=== PATIENT | female | born 1960 | race Caucasian/White ===

== ENCOUNTER 2016-12-25 19:04 | Emergency (ER) | payer MEDICAID, OTHER ==
[~2016-12-25] VITALS: Ht 170.2 cm; Wt 77.9 kg
[2016-12-25] MEDS ORDERED: SODIUM CHLORIDE FLUSH 10ML SYR IVF ONE ×2 (19:30→21:00)
[2016-12-25 20:05] LABS: HEMATOCRIT 38.1 % (34.6-47.8); HEMOGLOBIN 12.9 g/dL (11.7-16.4); WHITE BLOOD COUNT 5.6 x10^3/uL (3.4-10)
[2016-12-25 20:15] LABS: BLOOD UREA NITROGEN 16 mg/dL (7-18)
[2016-12-25] MEDS ORDERED: GABA300C10 PO (20:20)
[2016-12-25] MEDS ORDERED: ERGO500018 PO (20:20)
[2016-12-25] MEDS ORDERED: SUMA20SP2 NAS (20:20)
[2016-12-25] MEDS ORDERED: AMIT25TA PO (20:20)
[2016-12-25] MEDS ORDERED: LOSA100T6 PO (20:20)
[2016-12-25] MEDS ORDERED: PROM25SU34 RC (20:20)
[2016-12-25] MEDS ORDERED: DULO30CA2 PO (20:20)
[2016-12-25] MEDS ORDERED: VERA120T5 PO (20:20)
[2016-12-25] MEDS ORDERED: OMEP-110 PO (20:20)
[2016-12-25] MEDS ORDERED: RIZA10TA20 PO (20:20)
[2016-12-25] MEDS ORDERED: PROCHLORPERAZINE 5 MG/ML, 2ML IVPush ONE (21:00)
[2016-12-25] MEDS ORDERED: SODIUM CHLORIDE 0.9% 1,000ML IVBOLUS ONE (21:00)
[2016-12-25] MEDS ORDERED: KETOROLAC 30 MG/1 ML IVPush ONE (21:00)
[2016-12-25] MEDS ORDERED: DIPHENHYDRAMINE 50 MG/ML, 1ML IVPush ONE (21:00)
[2016-12-25] MEDS ORDERED: KETOROLAC 30 MG/1 ML ONE (21:03)
[2016-12-25] MEDS ORDERED: PROCHLORPERAZINE 5 MG/ML, 2ML ONE (21:03)
[2016-12-25] MEDS ORDERED: DIPHENHYDRAMINE 50 MG/ML, 1ML ONE (21:03)
[2016-12-25 22:10] VITALS: BP 126/65
== END 2016-12-25 22:23 | disposition home or self-care (01) ==
LOC: ED 22:17
DX: G43.009 Migraine without aura, not intractable, without status migrainosus (principal); I10 Essential (primary) hypertension; Z87.891 Personal history of nicotine dependence; Z88.5 Allergy status to narcotic agent; Z91.041 Radiographic dye allergy status
CPT/HCPCS: 36415; 70450; 80048; 82040; 85025; 96361; 96374; 96375; 99285; J0780; J1200; J1885; J7030

== ENCOUNTER 2017-01-09 13:19 | Emergency (ER) | payer MEDICAID ==
[~2017-01-09] VITALS: Ht 170.2 cm; Wt 77.9 kg
[~2017-01-09 13:19] MED LIST: AMIT25TA PO; DULO30CA2 PO; ERGO500018 PO; GABA300C10 PO; LOSA100T6 PO; OMEP-110 PO; PROM25SU34 RC; RIZA10TA20 PO; SUMA20SP2 NAS; VERA120T5 PO
[2017-01-09 13:30] VITALS: BP 175/104
[2017-01-09] MEDS ORDERED: HYDROcodone/APAP 5/325 TABLET PO STA (13:51)
[2017-01-09] MEDS ORDERED: HYDROcodone/APAP 5/325 TABLET ONE (13:55)
== END 2017-01-09 15:13 | disposition home or self-care (01) ==
LOC: ED 15:07
DX: S62.174A Nondisplaced fracture of trapezium [larger multangular], right wrist, initial encounter for closed fracture (principal); S80.01XA Contusion of right knee, initial encounter; S40.812A Abrasion of left upper arm, initial encounter; S29.9XXA Unspecified injury of thorax, initial encounter; W19.XXXA Unspecified fall, initial encounter; Y93.89 Activity, other specified; Y99.8 Other external cause status; Y92.096 Garden or yard of other non-institutional residence as the place of occurrence of the external cause
CPT/HCPCS: 96374

== ENCOUNTER 2017-10-06 17:43 | Emergency (ER) | payer MEDICAID ==
[~2017-10-06] VITALS: Ht 170.2 cm; Wt 76.4 kg
[~2017-10-06 17:43] MED LIST changes: +PROM25SU34 PO; -PROM25SU34 RC; -SUMA20SP2 NAS; +SUMA20SP2 PO
[2017-10-06] MEDS ORDERED: ONDANSETRON ODT 4 MG PO ONE (18:00)
[2017-10-06] MEDS ORDERED: METOCLOPRAMIDE 5 MG/ML, 2ML IVPush ONE (19:30)
[2017-10-06] MEDS ORDERED: DIPHENHYDRAMINE 50 MG/ML, 1ML IVPush ONE (19:30)
[2017-10-06] MEDS ORDERED: SODIUM CHLORIDE FLUSH 10ML SYR IVF ONE (19:30)
[2017-10-06] MEDS ORDERED: SODIUM CHLORIDE 0.9% 1,000ML IVBOLUS ONE (19:30)
[2017-10-06 19:49] LABS: BASOPHILS # (AUTO) 0.03 x10^3/uL (0-0.1); BASOPHILS % (AUTO) 1 % (0-1); EOSINOPHILS # (AUTO) 0.14 x10^3/uL (0-0.4); EOSINOPHILS % (AUTO) 3 % (1-7); LYMPHOCYTES # (AUTO) 2.31 x10^3/uL (1-3.4); LYMPHOCYTES % (AUTO) 41 % (22-44); MD NO; MEAN CORPUSCULAR HEMOGLOBIN 29.9 pg (27.0-34.8); MEAN CORPUSCULAR VOLUME 90.8 fL (80-100); MEAN PLATELET VOLUME 7.6 fL (7.4-10.4); MONOCYTES # (AUTO) 0.32 x10^3/uL (0.2-0.8); MONOCYTES % (AUTO) 6 % (2-9); NEUTROPHILS # (AUTO) 2.79 x10^3/uL (1.8-6.8); NEUTROPHILS % (AUTO) 50 % (42-75); PLATELET COUNT 279 x10^3/uL (130-400); RED CELL DISTRIBUTION WIDTH 14.3 % (9.6-15.2)
[2017-10-06] MEDS ORDERED: METOCLOPRAMIDE 5 MG/ML, 2ML ONE (19:49)
[2017-10-06] MEDS ORDERED: DIPHENHYDRAMINE 50 MG/ML, 1ML ONE (19:49)
[2017-10-06 20:00] LABS: ALBUMIN 4.1 g/dL (3.4-5.0); ANION GAP 4 mmol/L (5-15); CALCIUM 9.3 mg/dL (8.5-10.1); CHLORIDE 109 mmol/L (98-107); CREATININE 2.72 mg/dL (0.55-1.02)
[2017-10-06] MEDS ORDERED: FURO-93 PO (20:10)
[2017-10-06 21:28] VITALS: BP 129/69
== END 2017-10-06 21:32 | disposition home or self-care (01) ==
LOC: ED 21:00
DX: G43.909 Migraine, unspecified, not intractable, without status migrainosus (principal); I10 Essential (primary) hypertension
CPT/HCPCS: 36415; 70450; 80048; 82040; 85025; 96374; 96375; 99285; J1200; J2765; J7030; Q0162

== ENCOUNTER → 2017-12-09 | Outpatient (CLI) | payer MEDICAID ==
[~2017-12-09] MED LIST changes: +FURO-93 PO
== END | disposition home or self-care (01) ==
LOC: CFH 15:18
PROVIDERS: ATTEND Nurse Practitioner Family
DX: S83.281A Other tear of lateral meniscus, current injury, right knee, initial encounter (principal); M22.41 Chondromalacia patellae, right knee; M75.51 Bursitis of right shoulder; Y93.89 Activity, other specified; X58.XXXA Exposure to other specified factors, initial encounter; Y92.89 Other specified places as the place of occurrence of the external cause; Y99.8 Other external cause status

== ENCOUNTER 2018-04-09 12:27 | Emergency (ER) | payer MEDICAID ==
[~2018-04-09] VITALS: Ht 170.2 cm; Wt 70.0 kg
[~2018-04-09 12:27] MED LIST changes: -LOSA100T6 PO; +LOSA100T7 PO
[2018-04-09] MEDS ORDERED: FLUORESCEIN/BENOXINATE 5 ML DROPS OP ONE (13:00)
--- NOTE | 2018-04-09 13:03 | NUR ---
pt presents with subconjunctival hemotoma in right eye after dog hit her in face x2 over last week. pain in nose and around orbit. no other bruising noted. visual acuity measured. bp stable. awaiting orders at this time.
--- NOTE | 2018-04-09 13:35 | NUR ---
pt to imaging.
[2018-04-09 13:58] VITALS: BP 160/75
--- NOTE | 2018-04-09 14:02 | NUR ---
ct results back. chart up for recheck.
== END 2018-04-09 14:39 | disposition home or self-care (01) ==
LOC: ED 14:00
DX: H11.31 Conjunctival hemorrhage, right eye (principal); J32.0 Chronic maxillary sinusitis; G89.29 Other chronic pain; I10 Essential (primary) hypertension; Z90.89 Acquired absence of other organs
CPT/HCPCS: 70486; 99284

== ENCOUNTER 2019-03-23 13:57 | Inpatient (IN) | payer MEDICAID ==
[~2019-03-23] VITALS: Ht 170.2 cm; Wt 64.8 kg
[~2019-03-23 13:57] MED LIST changes: +LOSA100T14 PO; -LOSA100T7 PO
[2019-03-23 15:19] LABS: BASOPHILS # (AUTO) 0.03 x10^3/uL (0-0.1); BASOPHILS % (AUTO) 0 % (0-1); EOSINOPHILS # (AUTO) 0.17 x10^3/uL (0-0.4); EOSINOPHILS % (AUTO) 3 % (1-7); LYMPHOCYTES # (AUTO) 1.61 x10^3/uL (1-3.4); LYMPHOCYTES % (AUTO) 26 % (22-44); MD NO; MEAN CORPUSCULAR HEMOGLOBIN 30.8 pg (27.0-34.8); MEAN CORPUSCULAR HGB CONC 32.2 g/dL (32.4-35.8); MEAN CORPUSCULAR VOLUME 95.8 fL (80-100); MEAN PLATELET VOLUME 7.3 fL (7.4-10.4); MONOCYTES # (AUTO) 0.31 x10^3/uL (0.2-0.8); MONOCYTES % (AUTO) 5 % (2-9); NEUTROPHILS # (AUTO) 4.01 x10^3/uL (1.8-6.8); NEUTROPHILS % (AUTO) 65 % (42-75); PLATELET COUNT 268 x10^3/uL (130-400); RED BLOOD COUNT 3.98 x10^6/uL (3.82-5.3); RED CELL DISTRIBUTION WIDTH 13.3 % (9.6-15.2)
[2019-03-23 15:30] LABS: ALANINE AMINOTRANSFERASE 19 U/L (12-78); ALBUMIN 3.7 g/dL (3.4-5.0); ANION GAP 5 mmol/L (5-15); CALCIUM 9.3 mg/dL (8.5-10.1); CHLORIDE 112 mmol/L (98-107)
[2019-03-23 15:32] LABS: ALKALINE PHOSPHATASE 156 U/L (45-117); BILIRUBIN,TOTAL 0.3 mg/dL (0.2-1.0); TOTAL PROTEIN 7.1 g/dL (6.4-8.2)
--- NOTE | 2019-03-23 17:14 | NUR ---
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
--- NOTE | 2019-03-23 18:20 | NUR ---
IV ESTABLISHED AND PT MEDICATED PER MAR. NO NEEDS AT THIS TIME. CALL LIGHT WTIHIN REACH.
[2019-03-23] MEDS ORDERED: METOCLOPRAMIDE 5 MG/ML, 2ML ONE (18:26)
[2019-03-23] MEDS ORDERED: DIPHENHYDRAMINE 50 MG/ML, 1ML ONE (18:26)
[2019-03-23] MEDS ORDERED: SODIUM CHLORIDE 0.9% 1,000ML IVBOLUS ONE (18:30)
[2019-03-23] MEDS ORDERED: METOCLOPRAMIDE 5 MG/ML, 2ML IVPush ONE (18:30)
[2019-03-23] MEDS ORDERED: DIPHENHYDRAMINE 50 MG/ML, 1ML IVPush ONE (18:30)
--- NOTE | 2019-03-23 19:11 | NUR ---
Patient out of room for imaging.
--- NOTE | 2019-03-23 20:46 | NUR ---
RN to bedside, patient's family member at bedside. Informed patient that her MRI still needs to finish being read by a radiologist. Per patient and family member, vital signs (hypertension) has improved and headache has improved after migrain medications were administered. Lights turned off, declines further needs at this time.
[2019-03-23] MEDS ORDERED: MORPHINE SULFATE 4 MG/ML, 1ML IVPush PRN (21:00)
[2019-03-23] MEDS ORDERED: MORPHINE SULFATE 4 MG/ML, 1ML ONE (21:08)
[2019-03-23] MEDS: MORPHINE SULFATE 4 MG/ML, 1ML IVPush PRN (21:12)
--- NOTE | 2019-03-23 22:16 | NUR ---
###==== Contact info ====### Bert Dwyer:
--- NOTE | 2019-03-23 23:17 | NUR ---
Patient sleeping comfortably, vital signs stable. Awaiting medical floor placement.
[2019-03-24] VITALS (9 sets, daily range): BP systolic 119–177; BP diastolic 71–81
[2019-03-24] MEDS ORDERED: morphine SULFATE 10 MG/ML, 1ML IVPush PRN (00:30)
[2019-03-24] MEDS ORDERED: ACETAMINOPHEN 325 MG TABLET PO PRN (00:30)
[2019-03-24] MEDS ORDERED: TEMAZEPAM 15 MG CAPSULE PO PRN (00:30)
[2019-03-24] MEDS ORDERED: BISACODYL 10 MG SUPP PR PRN (00:30)
[2019-03-24] MEDS ORDERED: ENALAPRILAT 1.25 MG/ML, 2ML IVPush PRN (00:30)
[2019-03-24] MEDS ORDERED: LORazepam 2 MG/ML, 1ML IVPush PRN (00:30)
[2019-03-24] MEDS ORDERED: LIDODERM 5% PATCH TD PRN (00:30)
[2019-03-24] MEDS: ONDANSETRON 2MG/ML, 2ML IVPush PRN ×2 (00:54→18:15)
[2019-03-24] MEDS ORDERED: hydrALAzine 20 MG/ML, 1ML IV PRN ×2 (01:00→09:00)
[2019-03-24] MEDS ORDERED: PHARMACY MAY ADJ FOR RENAL FX MC PRN (01:00)
[2019-03-24] MEDS ORDERED: DIPHENHYDRAMINE 50 MG/ML, 1ML IVPush PRN (01:00)
[2019-03-24] MEDS: MORPHINE SULFATE 4 MG/ML, 1ML IVPush PRN (08:20)
[2019-03-24] MEDS ORDERED: RIZATRIPTAN 10MG TABLET PO PRN (08:30)
[2019-03-24] MEDS: DULOXETINE 30 MG CAPSULE.DR PO SCH ×2 (09:00→09:32)
[2019-03-24] MEDS: GABAPENTIN 100 MG CAPSULE PO SCH ×2 (09:00→09:32)
[2019-03-24] MEDS: VERAPAMIL 120MG TABLET PO SCH (09:33)
[2019-03-24] MEDS ORDERED: SODIUM CHLORIDE 0.45% 1,000 ML IV SCH (11:00)
[2019-03-24] MEDS: VALPROATE SODIUM 500 MG in DEXTROSE 5% 100 ML IV SCH ×3 (12:02→23:00)
[2019-03-24] MEDS: AMLODIPINE 10 MG TAB PO SCH (14:00)
[2019-03-24] MEDS ORDERED: OMEPRAZOLE 20 MG CAPSULE.DR PO SCH (21:00)
[2019-03-25] MEDS ORDERED: PROMETHAZINE 25 MG/ML, 1ML IM PRN
[2019-03-25 03:39] VITALS: BP 123/71
[2019-03-25] MEDS: VALPROATE SODIUM 500 MG in DEXTROSE 5% 100 ML IV SCH (04:35)
[2019-03-25 05:36] LABS: ANION GAP 12 mmol/L (5-15); CALCIUM 9.2 mg/dL (8.5-10.1); CHLORIDE 114 mmol/L (98-107)
[2019-03-25 05:37] LABS: BASOPHILS # (AUTO) 0.03 x10^3/uL (0-0.1); BASOPHILS % (AUTO) 0 % (0-1); EOSINOPHILS % (AUTO) 0 % (1-7); LYMPHOCYTES # (AUTO) 0.75 x10^3/uL (1-3.4); LYMPHOCYTES % (AUTO) 10 % (22-44); MD NO; MEAN CORPUSCULAR HEMOGLOBIN 31.7 pg (27.0-34.8); MEAN CORPUSCULAR VOLUME 96.1 fL (80-100); MEAN PLATELET VOLUME 7.6 fL (7.4-10.4); MONOCYTES # (AUTO) 0.08 x10^3/uL (0.2-0.8); MONOCYTES % (AUTO) 1 % (2-9); NEUTROPHILS # (AUTO) 6.91 x10^3/uL (1.8-6.8); NEUTROPHILS % (AUTO) 89 % (42-75); PLATELET COUNT 225 x10^3/uL (130-400); RED BLOOD COUNT 3.71 x10^6/uL (3.82-5.3)
[2019-03-25 08:46] VITALS: BP 146/74
[2019-03-25] MEDS ORDERED: AMLO10TA8 PO (09:26)
[2019-03-25] MEDS: AMLODIPINE 10 MG TAB PO SCH (09:49)
[2019-03-25] MEDS: VERAPAMIL 120MG TABLET PO SCH (09:49)
== END 2019-03-25 12:57 | disposition home or self-care (01) | DRG 92 ==
LOC: ED 20:13 → EDIP 22:05 → 3N 23:57
PROVIDERS: ADMIT Internal Medicine; ATTEND Internal Medicine
DX: I67.1 Cerebral aneurysm, nonruptured (principal); F33.9 Major depressive disorder, recurrent, unspecified; N17.9 Acute kidney failure, unspecified; N18.4 Chronic kidney disease, stage 4 (severe); Q61.3 Polycystic kidney, unspecified; F41.9 Anxiety disorder, unspecified; G43.909 Migraine, unspecified, not intractable, without status migrainosus; I12.9 Hypertensive chronic kidney disease with stage 1 through stage 4 chronic kidney disease, or unspecified chronic kidney disease; J32.9 Chronic sinusitis, unspecified; K44.9 Diaphragmatic hernia without obstruction or gangrene; M79.7 Fibromyalgia; Z82.3 Family history of stroke; Z82.71 Family history of polycystic kidney; Z87.891 Personal history of nicotine dependence; Z90.711 Acquired absence of uterus with remaining cervical stump
CPT/HCPCS: 36415; 70450; 70544; 70551; 80048; 80053; 85025; 96374; 96375; G0378; J2405; J2550; J1200; J2270; J2765; J7030

== ENCOUNTER → 2019-04-27 | Outpatient (CLI) | payer MEDICAID ==
[~2019-04-27] MED LIST changes: +AMLO10TA8 PO; +SINCALIDE (KINEVAC) 5 MCG ONE
== END | disposition home or self-care (01) ==
LOC: RAD 10:26
PROVIDERS: ATTEND Nurse Practitioner Family
DX: K21.9 Gastro-esophageal reflux disease without esophagitis (principal); Q61.3 Polycystic kidney, unspecified; M79.7 Fibromyalgia; I67.1 Cerebral aneurysm, nonruptured; R10.13 Epigastric pain; R11.0 Nausea; Z88.5 Allergy status to narcotic agent; Z91.041 Radiographic dye allergy status; Z91.011 Allergy to milk products; Z91.018 Allergy to other foods
CPT/HCPCS: 78227; A9537; J2805

== ENCOUNTER 2020-02-14 12:31 | Outpatient (CLI) | payer MEDICARE, MEDICAID ==
[~2020-02-14 12:31] MED LIST changes: +AMLO-211 PO; -AMLO10TA8 PO; -SINCALIDE (KINEVAC) 5 MCG ONE; +VERA120T13 PO; -VERA120T5 PO
== END 2020-02-14 23:59 | disposition home or self-care (01) ==
LOC: CFH 12:31
PROVIDERS: ATTEND Internal Medicine Nephrology
DX: I12.9 Hypertensive chronic kidney disease with stage 1 through stage 4 chronic kidney disease, or unspecified chronic kidney disease (principal); N18.30 Chronic kidney disease, stage 3 unspecified; Q61.2 Polycystic kidney, adult type; D64.9 Anemia, unspecified; N25.0 Renal osteodystrophy; R51.9 Headache, unspecified
CPT/HCPCS: 70544; 70551

== ENCOUNTER → 2020-09-23 | Outpatient (CLI) | payer MEDICARE, MEDICAID ==
[~2020-09-23] MED LIST changes: +REGADENOSON 0.4 MG/5 ML SYRINGE ONE
== END | disposition home or self-care (01) ==
LOC: CVU 06:29
PROVIDERS: ATTEND Internal Medicine Cardiovascular Disease
DX: I08.0 Rheumatic disorders of both mitral and aortic valves (principal); I10 Essential (primary) hypertension; R94.31 Abnormal electrocardiogram [ECG] [EKG]
CPT/HCPCS: 78452; 93017; 93306; 93356; A9502; J2785

== ENCOUNTER → 2020-10-23 | Outpatient (CLI) | payer MEDICARE, MEDICAID ==
[~2020-10-23] MED LIST changes: +ALPR0.5T7 PO; +AMLO-150 PO; +BREX0.5T PO; +DULO20CA45 PO; +FAMO40TA61 PO; +FLUT9.9S NS; +FURO-92 PO; +ONDA4TAB13 SL; -REGADENOSON 0.4 MG/5 ML SYRINGE ONE; +TRAZ50TA66 PO; +ZOLP10TA PO
[2020-10-23 11:57] LABS: BASOPHILS % (AUTO) 1 % (0-1); EOSINOPHILS % (AUTO) 3 % (1-7); LYMPHOCYTES % (AUTO) 32 % (22-44); MEAN CORPUSCULAR HEMOGLOBIN 31.5 pg (27.0-34.8); MEAN CORPUSCULAR HGB CONC 33.9 g/dL (32.4-35.8); MEAN PLATELET VOLUME 7.3 fL (7.4-10.4); MONOCYTES % (AUTO) 6 % (2-9); NEUTROPHILS % (AUTO) 59 % (42-75); PLATELET COUNT 236 x10^3/uL (130-400); RED BLOOD COUNT 3.33 x10^6/uL (3.82-5.3); RED CELL DISTRIBUTION WIDTH 12.9 % (9.6-15.2)
[2020-10-23 12:03] LABS: ALBUMIN 3.8 g/dL (3.4-5.0); CHLORIDE 111 mmol/L (98-107)
[2020-10-23 12:05] LABS: INTERNATIONAL NORMALIZED RATIO 0.96 (0.93-1.1); PROTHROMBIN TIME 10.3 Seconds (9.6-11.5)
[2020-10-23 12:06] LABS: ALANINE AMINOTRANSFERASE 9 U/L (12-78); ALKALINE PHOSPHATASE 156 U/L (45-117); ANION GAP 10 mmol/L (5-15); BILIRUBIN,TOTAL 0.3 mg/dL (0.2-1.0); CALCIUM 8.7 mg/dL (8.5-10.1); CREATININE 5.35 mg/dL (0.55-1.02); TOTAL PROTEIN 7.4 g/dL (6.4-8.2)
== END | disposition home or self-care (01) ==
LOC: STAR 10:44
PROVIDERS: ATTEND Surgery
DX: Z01.818 Encounter for other preprocedural examination (principal); N18.6 End stage renal disease; I25.2 Old myocardial infarction; Z20.822 Contact with and (suspected) exposure to COVID-19
CPT/HCPCS: 36415; 80053; 85025; 85610; 85730; 93005; U0003; U0005

== ENCOUNTER 2020-10-29 11:28 | Day surgery (SDC) | payer MEDICARE, MEDICAID ==
[~2020-10-29] VITALS: Ht 170.2 cm; Wt 66.3 kg
[2020-10-29 11:50] VITALS: BP 147/75
[2020-10-29] MEDS ORDERED: CHLORHEXIDINE 15 ML UDC PO ONE (12:00)
[2020-10-29] MEDS ORDERED: LACTATED RINGERS 1,000 ML IV SCH (12:00)
[2020-10-29] MEDS ORDERED: FENTANYL PF 250 MCG/5ML ONE (13:40)
[2020-10-29] MEDS ORDERED: MIDAZOLAM 1 MG/ML, 2ML ONE (13:40)
[2020-10-29] MEDS ORDERED: EPINEPHRINE 1 MG/ML, 1ML ONE (13:46)
[2020-10-29] MEDS ORDERED: BUPIVACAINE/PF 0.5% ONE (13:46)
[2020-10-29] MEDS ORDERED: HEPARIN 1,000 UNITS/ML, 10ML ONE (13:46)
[2020-10-29] MEDS ORDERED: EPHEDRINE 50 MG/ML, 1ML ONE (13:56)
[2020-10-29] MEDS ORDERED: PROMETHAZINE 25 MG/ML, 1ML IVPush PRN (14:00)
[2020-10-29] MEDS ORDERED: HYDROmorphone 1 MG/ML, 1ML INJ IVPush PRN (14:00)
[2020-10-29] MEDS ORDERED: DIPHENHYDRAMINE 50 MG/ML, 1ML IVPush PRN (14:00)
[2020-10-29] MEDS ORDERED: HALOPERIDOL 5 MG/ML IV PRN (14:00)
[2020-10-29] MEDS ORDERED: MEPERIDINE/PF 25MG/0.5ML IVPush PRN (14:00)
[2020-10-29] MEDS ORDERED: hydrALAzine 20 MG/ML, 1ML IV PRN (14:00)
[2020-10-29] MEDS ORDERED: LABETALOL 5MG/ML, 20ML IV PRN (14:00)
[2020-10-29] MEDS ORDERED: OXYcodone 5 MG/5 ML ORAL.SOL UDC PO PRN (14:00)
[2020-10-29] MEDS ORDERED: SUGAMMADEX 200 MG/2 ML IVPush ONE (14:23)
[2020-10-29] MEDS ORDERED: SUCCINYLCHOLINE 20 MG/ML, 10ML ONE (14:24)
[2020-10-29] MEDS ORDERED: GLYCOPYRROLATE 0.2MG/1ML, 5ML ONE (14:24)
[2020-10-29] MEDS ORDERED: PROPOFOL 10 MG/ML, 20ML ONE (14:24)
[2020-10-29] MEDS ORDERED: ONDANSETRON 2MG/ML, 2ML ONE (14:24)
[2020-10-29] MEDS ORDERED: NEOSTIGMINE 1 MG/ML, 10ML ONE (14:24)
[2020-10-29] MEDS ORDERED: DEXAMETHASONE 4 MG/ML, 1ML ONE (14:24)
[2020-10-29] MEDS ORDERED: ROCURONIUM 10MG/ML,5ML ONE (14:24)
[2020-10-29] MEDS ORDERED: CEFAZOLIN 1,000 MG ONE (14:24)
[2020-10-29] MEDS ORDERED: FENTANYL PF 100 MCG/2ML ONE (15:20)
[2020-10-29] MEDS ORDERED: OXYcodone 5 MG/5 ML ORAL.SOL UDC ONE (15:20)
[2020-10-29] MEDS: FENTANYL PF 100 MCG/2ML IV PRN ×2 (15:31→15:36)
== END 2020-10-29 16:40 | disposition home or self-care (01) ==
LOC: OUT 11:28
PROVIDERS: ATTEND Surgery
DX: I12.0 Hypertensive chronic kidney disease with stage 5 chronic kidney disease or end stage renal disease (principal); N18.6 End stage renal disease; G43.909 Migraine, unspecified, not intractable, without status migrainosus; M79.7 Fibromyalgia; Z79.899 Other long term (current) drug therapy; Z87.891 Personal history of nicotine dependence; Z88.8 Allergy status to other drugs, medicaments and biological substances; Z91.011 Allergy to milk products; Z91.018 Allergy to other foods; Z91.041 Radiographic dye allergy status; Z82.49 Family history of ischemic heart disease and other diseases of the circulatory system; Z83.3 Family history of diabetes mellitus
CPT/HCPCS: 49324; C1726; J0171; J0690; J1100; J1644; J2250; J2405; J2704; J3010; J7120; J2710; J0330